=== PATIENT | male | born 1985 | race Caucasian/White ===

== ENCOUNTER 2023-05-17 13:23 | Emergency (ER) | payer BC, MEDICAID ==
[2023-05-17 14:08] VITALS: BP 116/78; PULSE 84
[2023-05-17] MEDS ORDERED: Bacitracin Oint 1 GM U/D Packet TOP ONE (14:46)
[2023-05-17] MEDS ORDERED: Lidocaine 1% 5 ML VIAL INJECT ONE (14:46)
== END 2023-05-17 15:32 | disposition home or self-care (01) ==
LOC: JP.ED 13:23
DX: S62.634A Displaced fracture of distal phalanx of right ring finger, initial encounter for closed fracture (principal)
CPT/HCPCS: 12001; 73140-26-F8; 73140-F8; 99283